=== PATIENT | male | born 1975 | race Caucasian/White ===

== ENCOUNTER 2017-12-01 04:50 | Inpatient (IN) | payer OTHER ==
[~2017-12-01] VITALS: Ht 200.7 cm; Wt 149.7 kg
[~2017-12-01 04:50] MED LIST: CATAFLAM50 MG; CEFADROXIL500 MG PO; CIPRO500 MG PO; FLAGYL500MG PO; HYZAAR 50-12.1 UDTAB PO; HYZAAR 50/12.51 TAB; METFORMIN HCL500 MG; METFORMIN HCL500 MG PO; ZOLPIDEM TARTRA10 MG PO
== END 2017-12-05 12:24 | disposition home or self-care (01) | DRG 392 ==
LOC: ER 04:50 → MEDI 21:11
PROC: BW21ZZZ Computerized Tomography (CT Scan) of Abdomen and Pelvis (ICD-10-PCS; principal; 2017-12-01)
DX: K57.32 Diverticulitis of large intestine without perforation or abscess without bleeding (principal); E11.9 Type 2 diabetes mellitus without complications; I10 Essential (primary) hypertension; E66.8 Other obesity

== ENCOUNTER 2020-09-17 02:59 | Emergency (ER) | payer OTHER ==
[~2020-09-17] VITALS: Ht 200.7 cm; Wt 149.7 kg
== END 2020-09-17 08:40 | disposition home or self-care (01) ==
LOC: ER 02:59
DX: R51.9 Headache, unspecified (principal); Z20.822 Contact with and (suspected) exposure to COVID-19

== ENCOUNTER 2022-01-30 09:27 | Outpatient (CLI) | payer OTHER | END 2022-01-30 09:43 | disposition home or self-care (01) | LOC: LAB 09:27 | DX: E03.4 Atrophy of thyroid (acquired) (principal); E11.65 Type 2 diabetes mellitus with hyperglycemia; E78.5 Hyperlipidemia, unspecified ==